=== PATIENT | female | born 1975 | race African-American/Black ===

== ENCOUNTER 2020-05-23 08:57 | Outpatient (CLI) | payer MEDICARE, MEDICAID | END 2020-05-23 08:58 | disposition home or self-care (01) | LOC: CSHCT 08:57 | PROVIDERS: ATTEND Internal Medicine | DX: R10.84 Generalized abdominal pain (principal); R11.2 Nausea with vomiting, unspecified; K92.1 Melena; K38.9 Disease of appendix, unspecified; K63.9 Disease of intestine, unspecified; Z90.49 Acquired absence of other specified parts of digestive tract; Z90.710 Acquired absence of both cervix and uterus | CPT/HCPCS: 74177 ==